=== PATIENT | male | born 1980 | race Caucasian/White ===

== ENCOUNTER 2018-04-22 11:10 | Day surgery (SDC) | payer SELFPAY ==
[~2018-04-22] VITALS: Ht 188 cm; Wt 104.5 kg
[2018-04-22] VITALS (9 sets, daily range): BP systolic 107–123; BP diastolic 64–81; PULSE 57–88; TEMP 98.6
[2018-04-22] MEDS ORDERED: CLARITIN 1010 MG/TAB PO (12:00)
[2018-04-22] MEDS ORDERED: ZOFRAN 4MG T4 MG/TAB PO (12:01)
[2018-04-22] MEDS ORDERED: ADVIL200 MG PO (12:01)
[2018-04-22] MEDS ORDERED: ROXICODONE 55 MG/TAB PO (12:02)
--- NOTE | 2018-04-22 13:25 | NUR ---
Patient to room 2 per cart from Endoscopy after having ERCP. Resting on cart and denies pain or nausea. IV fluids infusing. Call light in reach and siderails up x2. Father in room. Taking sips of water. Temp 97.8.
--- NOTE | 2018-04-22 13:40 | NUR ---
Resting and watches TV.
--- NOTE | 2018-04-22 13:55 | NUR ---
Eating jello and drinking water. Warm blanket given to lay on chest and upper abdomen for complaints of mild cramping feeling. Denies need for pain medication.
--- NOTE | 2018-04-22 14:10 | NUR ---
Resting without complaints of pain. Watches TV and father in room.
--- NOTE | 2018-04-22 14:25 | NUR ---
Reports intense upper abdominal pain that lasted approixmately 30 seconds that resolved. Keeps warm blanket on chest.
--- NOTE | 2018-04-22 14:26 | NUR ---
Left message on Dr. Kinsey's phone of patient's complaints of pain. Will await return call.
--- NOTE | 2018-04-22 14:55 | NUR ---
Patient assisted up to the bathroom and gait steady. Patient voids and returns to room. Denies further pain or nausea.
--- NOTE | 2018-04-22 15:25 | NUR ---
Resting and denies pain or nausea. Temp 98.3. IV converted to INT.
--- NOTE | 2018-04-22 16:30 | NUR ---
Patient given dismissal instructions and voiced understanding of these. INT dismissed. Patient dismissed to home per private vehicle driven by father with dismissal instructions in hand. Taken to the front door per wheelchair by Ana FARNSWORTH and assisted into car.
== END 2018-04-22 16:30 | disposition home or self-care (01) ==
LOC: SDCO 11:10
DX: K80.20 Calculus of gallbladder without cholecystitis without obstruction (principal); K83.8 Other specified diseases of biliary tract; R93.2 Abnormal findings on diagnostic imaging of liver and biliary tract; J45.909 Unspecified asthma, uncomplicated; K21.9 Gastro-esophageal reflux disease without esophagitis; F17.210 Nicotine dependence, cigarettes, uncomplicated
CPT/HCPCS: C1769; J2704; J7030; Q9967